=== PATIENT | female | born 1985 | race Two or more races ===

== ENCOUNTER → 2024-07-13 | Outpatient (CLI) | payer BC, MEDICAID, SELFPAY ==
--- NOTE | 2024-07-13 14:45 | XR_ITS ---
Examination: Screening digital mammography, bilateral Computer aided detection 3-D breast Tomosynthesis, bilateral Date and time of exam: July 13, 2024 1426 hours INDICATIONS: Right breast pain beginning several years ago, family history breast cancer Indication: Screening Technique: Nonmagnified MLO, CC views of the breasts to been obtained, reconstructed from 3-D Tomosynthesis images. R2 computer aided detection program utilized for evaluation of suspicious masses and/or abnormal calcifications. 3-D Tomosynthesis images obtained. Findings: The breasts are heterogeneously dense, which may obscure small masses 12 mm focal asymmetry outer right breast posterior depth, 6.1 cm from the nipple Impression: BI-RADS Category 0: Incomplete: Need additional imaging evaluation 12 mm focal asymmetry outer right breast posterior depth, 6.1 cm from the nipple, recommend follow-up spot tomographic views upper outer quadrant right breast, right breast sonography to complete the workup.
== END | disposition home or self-care (01) ==
LOC: CDIM 14:14
PROVIDERS: PCP Nurse Practitioner Family; Referring Provider Nurse Practitioner Family; Visit Provider Nurse Practitioner Family
DX: Z12.31 Encounter for screening mammogram for malignant neoplasm of breast (principal); N64.89 Other specified disorders of breast; R92.8 Other abnormal and inconclusive findings on diagnostic imaging of breast
CPT/HCPCS: 77063; 77067

== ENCOUNTER → 2024-08-10 | Outpatient (CLI) | payer BC, MEDICAID, SELFPAY ==
--- NOTE | 2024-08-10 11:00 | XR_ITS ---
Examination: Breast ultrasound, unilateral, right complete Date and time of exam: August 10, 2024 1059 hrs. Indications: Right breast pain 6 months, mammogram July 13, 2024 12 mm focal asymmetry outer right breast posterior depth Technique: Real-time christine scale ultrasonographic imaging performed right breast including all 4 quadrants as well as nipple retroareolar and axillary region. Findings: Multiple benign cysts 7:00 oval mass 5 x 3 x 6 mm 11:00 oval mass lobular margins 9 x 3 x 7 mm Impression: BI-RADS Category 3: Probably benign findings Recommend 1 additional 6 month right breast sonogram follow-up to document stability of 7:00 11:00 nodules described above
--- NOTE | 2024-08-10 11:30 | XR_ITS ---
Examination: Diagnostic digital mammography, unilateral, right Computer aided detection 3-D breast Tomosynthesis, unilateral Date and time of exam: 08/10/2024, 11:17 AM Comparisons: November Indications: Technique: Nonmagnified MLO, CC views of the breast have been obtained, reconstructed from 3-D Tomosynthesis images. R2 computer aided detection program utilized for evaluation of suspicious masses and/or abnormal calcifications. 3-D Tomosynthesis images obtained. Technologist: Findings: The breasts are heterogeneously dense, which may obscure small masses. Benign-appearing asymmetry persists in the outer breast. Otherwise, no evidence of abnormal masses or suspicious calcifications. Impression: BI-RADS category 2: Benign findings Recommend 1 year follow-up mammogram
== END | disposition home or self-care (01) ==
PROVIDERS: PCP Nurse Practitioner Family; Referring Provider Nurse Practitioner Family; Visit Provider Nurse Practitioner Family
DX: R92.321 Mammographic fibroglandular density, right breast (principal); N63.11 Unspecified lump in the right breast, upper outer quadrant; N63.12 Unspecified lump in the right breast, upper inner quadrant
CPT/HCPCS: 76641; 77061; 77065; G0279